=== PATIENT | male | born 1940 | race Caucasian/White ===

== ENCOUNTER 2021-10-07 10:05 | Emergency (ER) | payer OTHER, SELFPAY ==
[2021-10-07 10:15] VITALS: BP 160/70; PULSE 74; RESP 16; TEMP 36.3; O2SAT 98
--- NOTE | 2021-10-07 10:15 | ED.GENADULT ---
HPI - General Adult General Chief complaint: Upper Respiratory Infection Stated complaint: sre throat Time Seen by Provider: 10/07/21 10:17 Source: patient and RN notes reviewed Mode of arrival: ambulatory Limitations: no limitations History of Present Illness HPI narrative: 80-year-old male presenting for complaint of runny nose and occasional nonproductive cough for about 3 weeks. He denies associated sinus pressure/congestion, shortness of breath, nausea, vomiting, dizziness, fever or chills. He has not taken anything for symptoms, stating he does not like the effects of any medications. States he does not have a PCP. History of aneurysm, aortic valve replacement. Related Data Home Medications Medication Instructions Recorded Confirmed amlodipine 5 mg tablet 5 mg PO DAILY 08/31/19 10/07/21 lisinopril 40 mg tablet 40 mg PO DAILY 08/31/19 10/07/21 metoprolol tartrate 25 mg tablet 25 mg PO DAILY 08/31/19 10/07/21 simvastatin 10 mg tablet 10 mg PO DAILY 08/31/19 10/07/21 terazosin 5 mg capsule 5 mg PO DAILY 08/31/19 10/07/21 warfarin 4 mg tablet 4 mg PO DAILY 08/31/19 10/07/21 Allergies Allergy/AdvReac Type Severity Reaction Status Date / Time shellfish derived Allergy Severe N/V, Verified 10/07/21 10:10 DIAHRREJorge Review of Systems Review of Systems: CONSTITUTIONAL:denies malaise, chills, sweats, fever EYES: Denies visual changes, redness, or discharge ENT: Reports rhinorrhea, denies congestion, sinus pain, otalgia, sore throat CARDIOVASCULAR: Denies chest pain, palpitations, edema RESPIRATORY: Reports cough, post nasal drainage. Denies dyspnea GASTROINTESTINAL: Denies abdominal pain, nausea, vomiting, diarrhea SKIN: Denies rash or itching MUSCULOSKELETAL: denies myalgia NEUROLOGIC: Denies headache PMFSH Social History Social History Smoking status: Never smoker Exam Narrative: GENERAL: well-appearing, nontoxic HEAD: Normocephalic EYES: PERRLA, conjunctivae clear ENT: Mucous membranes moist. TM unable to visualize due to cerumen bilaterally; no tragal tenderness. Oropharynx erythematous without lesions or exudate, no drooling, no hoarseness, no trismus, uvula midline. NECK: Supple. No lymphadenopathy CHEST: Clear to auscultation, breath sounds equal. No wheezing, rhonchi, rales, or stridor. No respiratory distress, speaks in full sentences. HEART: Regular rate and rhythm. No murmur heard. SKIN: Warm, dry, no rash. NEURO: Alert and oriented x3. PSYCH: Normal mood and affect Course Course Emergency Course: Patient is aware of diagnosis, we discussed at length recommend otc meds for 'runny nose' symptoms; pt is adamant he needs abx. Advised taking otc meds and if no improvement/ worsening condition abx is prescribed. understands and agrees to treatment plan. Anticipatory guidance given. Patient agrees to follow-up as directed and is aware of reasons to seek care at the emergency department. Portions of this record may have been created with voice recognition software Level of Care: Express Care Visit Vital Signs Vital signs: Vital Signs Temperature 97.4 F L 10/07/21 10:15 Pulse Rate 74 10/07/21 10:15 Respiratory Rate 16 10/07/21 10:15 Blood Pressure 160/70 H 10/07/21 10:15 Pulse Oximetry 98 10/07/21 10:15 Temperature 97.4 F L 10/07/21 10:15 Pulse Rate 74 10/07/21 10:15 Respiratory Rate 16 10/07/21 10:15 Blood Pressure 160/70 H 10/07/21 10:15 Pulse Oximetry 98 10/07/21 10:15 reviewed Medical Decision Making Differential Diagnosis Differential Diagnosis: influenza, covid, sinusitis, OM, strep pharyngitis, URI Vital Signs Vital Signs: Vital Signs Temperature 97.4 F L 10/07/21 10:15 Pulse Rate 74 10/07/21 10:15 Respiratory Rate 16 10/07/21 10:15 Blood Pressure 160/70 H 10/07/21 10:15 Pulse Oximetry 98 10/07/21 10:15 Temperature 97.4 F L 10/07/21 10:15 Pulse Rate 74 10/07/21 10:15 Re
== END 2021-10-07 10:30 | disposition home or self-care (01) ==
PROVIDERS: Emergency Provider Nurse Practitioner Family
DX: J06.9 Acute upper respiratory infection, unspecified (principal); E78.00 Pure hypercholesterolemia, unspecified; I10 Essential (primary) hypertension; M19.90 Unspecified osteoarthritis, unspecified site
CPT/HCPCS: 99213; G0463

== ENCOUNTER 2022-12-25 09:50 | Emergency (ER) | payer OTHER, SELFPAY ==
--- NOTE | ~2022-12-25 | XR_ITS ---
XR chest 2V 12/25/2022 10:56 Indication: Shortness of breath and congestion Procedure: 2 view chest Comparison: Comparison to multiple prior studies sequentially, with oldest reviewed study dated 11/2017. Findings: Heart size normal. Status post median sternotomy for CABG. There is a prosthetic heart valv e. No there are chronic right basilar infiltrates, most likely atelectasis scarring. Elevated right d iaphragm. No acute pneumonia, edema, significant effusion or pneumothorax. Impression: 1: Chronic right basilar atelectasis/scarring. Reviewed, dictated and finalized at location A. Impression: 1: Chronic right basilar atelectasis/scarring.
[2022-12-25 10:03] VITALS: BP 142/72; PULSE 81; RESP 16; TEMP 37.1; O2SAT 95
--- NOTE | 2022-12-25 10:31 | ED.URI ---
HPI - URI/Sore Throat General Chief Complaint: Upper Respiratory Infection Stated Complaint: cough; clear drainage Time Seen by Provider: 12/25/22 10:31 Source: patient and RN notes reviewed Mode of arrival: ambulatory Limitations: no limitations History of Present Illness HPI Narrative: 82-year-old male presented for complaint of cough, runny nose for months since having covid. States last night the nonproductive cough was worse. Coughing increased when laying flat due to drainage. Denies shortness of breath, wheezing, nausea vomiting, fevers or chills. He has not taking anything for symptoms. MD elicited complaint: cough Related Data Home Medications Medication Instructions Recorded Confirmed amlodipine 5 mg tablet 5 mg PO DAILY 09/02/22 12/25/22 aspirin 81 mg tablet,delayed 81 mg PO DAILY 09/02/22 12/25/22 release (Adult Low Dose Aspirin) lisinopril 40 mg tablet 40 mg PO DAILY 09/02/22 12/25/22 simvastatin 10 mg tablet 10 mg PO .COMPLEX 09/02/22 12/25/22 terazosin 5 mg capsule 5 mg PO DAILY 09/02/22 12/25/22 warfarin 4 mg tablet 4 mg PO QMWF 09/02/22 12/25/22 Allergies Allergy/AdvReac Type Severity Reaction Status Date / Time shellfish derived Allergy Severe N/V, Verified 09/02/22 12:43 DIAHRREA Review of Systems Review of Systems: CONSTITUTIONAL: Denies malaise, chills, sweats, fever EYES: Denies visual changes, redness, or discharge ENT: Reports rhinorrhea, congestion, denies sinus pain, otalgia, sore throat CARDIOVASCULAR: Denies chest pain, palpitations, edema RESPIRATORY: Reports cough, post nasal drainage. Denies dyspnea GASTROINTESTINAL: Denies abdominal pain, nausea, vomiting, diarrhea SKIN: Denies rash or itching MUSCULOSKELETAL: Denies myalgia NEUROLOGIC: Denies headache PMFSH Past Medical History Medical History COVID-19 Hypertension Surgical History Surgical History Aortic valve replaced History of tonsillectomy Social History Social History Smoking status: Never smoker Alcohol intake: current Substance use: never Lack of Transportation: No Lack of Food: Never True Current Housing: I Have Housing Concerned About Future Housing: No Difficulty Paying Gas/Electric Bills: No Difficulty Paying for Meds: No Currently Unemployed: No Education: Master's Degree or Higher Difficulty w/ Childcare or Family Care: No Exam Narrative: GENERAL: well-appearing EYES: PERRLA, conjunctivae clear ENT: Mucous membranes moist. TM pearly escobar with dull light reflex bilaterally; no tragal tenderness. Oropharynx erythematous without lesions or exudate, no drooling, no hoarseness, no trismus, uvula midline. No tripod positioning, muffled voice, soft palate or pharyngeal wall bulging NECK: Supple. No lymphadenopathy CHEST: Clear to auscultation, breath sounds equal. No wheezing, rhonchi, rales, or stridor. No respiratory distress, speaks in full sentences. HEART: Regular rate and rhythm. Valve sound noted. No murmur heard. SKIN: Warm, dry, no rash. NEURO: Alert and oriented x3. PSYCH: Normal mood and affect Course Course Emergency Course: Patient is aware of diagnosis, understands and agrees to treatment plan. Anticipatory guidance given. Patient agrees to follow-up as directed and is aware of reasons to seek care at the emergency department. Portions of this record may have been created with voice recognition software Level of Care: Express Care Visit Vital Signs Vital signs: Vital Signs Temperature 98.7 F 12/25/22 10:03 Pulse Rate 81 12/25/22 10:03 Respiratory Rate 16 12/25/22 10:03 Blood Pressure 142/72 H 12/25/22 10:03 Pulse Oximetry 95 12/25/22 10:03 Oxygen Delivery Room Air 12/25/22 10:03 Temperature 98.7 F 12/25/22 10:03 Pulse Rate 81 12/25/22 10:
== END 2022-12-25 11:30 | disposition home or self-care (01) ==
PROVIDERS: Emergency Provider Nurse Practitioner Family; PCP Pediatrics Neonatal-Perinatal Medicine
DX: J06.9 Acute upper respiratory infection, unspecified (principal); I10 Essential (primary) hypertension; Z86.16 Personal history of COVID-19; Z95.2 Presence of prosthetic heart valve
CPT/HCPCS: 71046; 99213; G0463

== ENCOUNTER 2024-03-12 16:01 | Emergency (ER) | payer OTHER, SELFPAY ==
[2024-03-12 16:04] VITALS: O2SAT 97
--- NOTE | 2024-03-12 16:09 | ECG_ITS ---
Test Date: 2024-03-12 16:12:14 Measurements Intervals [place] Rate: 82 P: 161 ID: 162 QRS: 232 QRSD: 142 T: 118 QT: 406 QTc: 475 Interpretive Statements SINUS RHYTHM ATRIAL AND VENTRICULAR PREMATURE COMPLEXES ARM LEADS REVERSED RIGHT BUNDLE BRANCH BLOCK BASELINE ARTIFACT- I, II, III, AVR, AVL, AVF ABNORMAL ECG No previous ECG available for comparison Electronically Signed On 03-12-2024 16:39:03 CDT by Vniay Bermudez D.O.
--- NOTE | 2024-03-12 16:09 | ED.CHESTPAIN ---
HPI - Chest Pain General Chief Complaint: Chest Pain Stated Complaint: Chest Wall Pain Time Seen by Provider: 03/12/24 16:02 Source: patient Mode of arrival: ambulatory Limitations: no limitations History of Present Illness HPI narrative: 83-year-old male presents with concern for chest pain. Reports sudden onset of left chest pain today. Reports he took a nitroglycerin when he had the pain, just prior to arrival. He denies any shortness of breath, coughing. Denies recent illness. He denies history of AK, reports history of valve replacement. He denies nausea, vomiting, back pain, abdominal pain. Patient demanded upon arrival be put on oxygen. Patient was started on 2 L nasal cannula, however he was 97% on room air. MD complaint: chest pain Related Data Home Medications Medication Instructions Recorded Confirmed amlodipine 5 mg tablet 5 mg PO DAILY 09/02/22 02/28/24 aspirin 81 mg tablet,delayed 81 mg PO DAILY 09/02/22 02/28/24 release (Adult Low Dose Aspirin) lisinopril 40 mg tablet 40 mg PO DAILY 09/02/22 02/28/24 simvastatin 10 mg tablet 10 mg PO .COMPLEX 09/02/22 02/28/24 terazosin 5 mg capsule 5 mg PO DAILY 09/02/22 02/28/24 warfarin 4 mg tablet 4 mg PO QMWF 09/02/22 02/28/24 Allergies Allergy/AdvReac Type Severity Reaction Status Date / Time shellfish derived Allergy Severe N/V, Verified 02/28/24 12:57 DIAHRREA Review of Systems Review of Systems: CONSTITUTIONAL: Denies malaise, chills, sweats, or fever. ENT: Denies rhinorrhea, congestion, sinus pain, otalgia or sore throat. CARDIOVASCULAR: Reports left-sided chest pain RESPIRATORY: Denies cough or dyspnea. GASTROINTESTINAL: Denies abdominal pain, nausea, vomiting MUSCULOSKELETAL: Reports back pain NEUROLOGIC: Denies numbness, weakness All systems reviewed & are unremarkable except as noted in HPI and below PMFSH Past Medical History Medical History COVID-19 Hypertension Surgical History Surgical History Aortic valve replaced History of tonsillectomy Social History Social History Smoking status: Never smoker Alcohol intake: current Substance use: never Lack of Transportation: No Lack of Food: Never True Current Housing: I Have Housing Concerned About Future Housing: No Difficulty Paying Gas/Electric Bills: No Difficulty Paying for Meds: No Currently Unemployed: No Education: Master's Degree or Higher Difficulty w/ Childcare or Family Care: No Comments At time of signature, agree with nursing past medical, surgical, social and family history. There is no relevant family history pertinent to the presenting complaint Exam Narrative: GENERAL: Nontoxic-appearing, well-nourished, and in no acute distress. HEAD: Normocephalic, atraumatic. EYES: PERRLA, sclera clear ENT: Nares clear. Mucous membranes moist. NECK: Supple. CHEST: No respiratory distress. Clear to auscultation. No bony deformities, no asymmetry. Speaks in full sentences. HEART: Regular rate and rhythm. No murmur heard. Normal peripheral pulses. SKIN: Warm, dry, no visible rash. NEURO: Alert and oriented x3. PSYCH: Normal mood and affect Course Course Emergency Course: Patient is aware of, understands and agrees to be transferred to the ER via EMS. Portions of this record may have been created with voice recognition software Level of Care: Express Care Visit Vital Signs Vital signs: Reviewed. Transfer Transfered to: [facility] Transportation: ALS Transfer rationale: Chest pain, suspected AK Accepting physician: [facility] that they may have to bring the patient to the closest facility which is [place], I spoke to Dr. Clark at [facility] on the phone, faxed EKG to Dr. Clark. MDM - Chest Pain MDM Narrative Medical decision
[2024-03-12 16:14] VITALS: BP 145/107; PULSE 79; RESP 20; TEMP 36.9; O2SAT 97
[2024-03-12 16:15] VITALS: BP 151/57; PULSE 87; RESP 20; O2SAT 99
[2024-03-12] MEDS: ASPIRIN 81 MG CHEWABLE TABLET 324 MG PO (16:33)
== END 2024-03-12 16:15 | disposition short-term general hospital (02) ==
PROVIDERS: Emergency Provider Nurse Practitioner
DX: R07.9 Chest pain, unspecified (principal); I10 Essential (primary) hypertension; Z95.2 Presence of prosthetic heart valve; Z86.16 Personal history of COVID-19; Z79.82 Long term (current) use of aspirin; Z79.01 Long term (current) use of anticoagulants
CPT/HCPCS: 93005; 99215; A9270; G0463

== ENCOUNTER 2025-01-04 14:52 | Emergency (ER) | payer OTHER, SELFPAY ==
[2025-01-04 15:10] VITALS: BP 115/48; PULSE 98; RESP 16; TEMP 37.2; O2SAT 94
--- NOTE | 2025-01-04 15:31 | ED_ITS ---
HPI - Extremity Injury (Upper) General Chief Complaint: Extremity Injury, Upper Stated Complaint: Left Hand Laceration Time Seen by Provider: 01/04/25 15:31 Source: patient and RN notes reviewed Mode of arrival: ambulatory Limitations: no limitations History of Present Illness HPI narrative: 84-year-old male presents with concern for skin tear to his left hand. Reports 3 days ago he got a skin caught in the zipper on his pants. Reports a keeps opening back up and bleeding. He is on a blood thinner. MD complaint: injury to: left and hand Related Data Home Medications ?Medication ?Instructions ?Recorded ?Confirmed ?Last Taken ?Type amlodipine 5 mg tablet 5 mg PO DAILY 09/02/22 03/12/24 Unknown History aspirin 81 mg tablet,delayed 81 mg PO DAILY 09/02/22 03/12/24 Unknown History release (Adult Low Dose Aspirin) lisinopril 40 mg tablet 40 mg PO DAILY 09/02/22 03/12/24 Unknown History simvastatin 10 mg tablet 10 mg PO .COMPLEX 09/02/22 03/12/24 Unknown History terazosin 5 mg capsule 5 mg PO DAILY 09/02/22 03/12/24 Unknown History warfarin 4 mg tablet 4 mg PO QMWF 09/02/22 03/12/24 Unknown History Allergies Allergy/AdvReac Type Severity Reaction Status Date / Time shellfish derived Allergy Severe N/V, Verified 01/04/25 15:18 DIAHRREA Review of Systems Review of Systems: CONSTITUTIONAL: Denies malaise, chills, sweats, or fever. SKIN: Reports skin tear to the dorsal left hand MUSCULOSKELETAL: Denies muscle skeletal pain NEUROLOGIC: Denies numbness, weakness All systems reviewed & are unremarkable except as noted in HPI and below PMFSH Past Medical History Medical History COVID-19 Hypertension Surgical History Surgical History Aortic valve replaced History of tonsillectomy Social History Social History Smoking status: Never smoker Alcohol intake: current Substance use: never Lack of Transportation: No Lack of Food: Never True Current Housing: I Have Housing Concerned About Future Housing: No Difficulty Paying Gas/Electric Bills: No Difficulty Paying for Meds: No Currently Unemployed: No Education: Master's Degree or Higher Difficulty w/ Childcare or Family Care: No Comments At time of signature, agree with nursing past medical, surgical, social and family history. There is no relevant family history pertinent to the presenting complaint Exam Narrative: GENERAL: Well-appearing, well-nourished, and in no acute distress. HEAD: Normocephalic, atraumatic. EYES: PERRLA, conjunctivae clear NECK: Supple. CHEST: Speaks in full sentences. No respiratory distress. HEART: Regular rate and rhythm. Normal and equal peripheral pulses. EXTREMITIES: Left hand digits have grossly normal strength and sensation, normal range of motion. No edema or ecchymosis.Distal pulses palpable and equal bilaterally, skin warm, dry, pink. Capillary refill less than 3 seconds. SKIN: Warm, dry, no rash. V-shaped skin tear proximally 2 cm noted to the dorsal left hand, edges fairly well-approximated. No surrounding erythema, edema, induration or drainage. NEURO: Alert and oriented x3. PSYCH: Normal mood and affect Course Course Emergency Course: Patient is aware of diagnosis, understands and agrees to treatment plan. Anticipatory guidance given. Patient agrees to follow-up as directed and is aware of reasons to seek care at the emergency department. Portions of this record may have been created with voice recognition software Level of Care: Express Care Visit Vital Signs Vital signs: Vital Signs Temperature 99.0 F 01/04/25 15:10 Pulse Rate 98 01/04/25 15:10 Respiratory Rate 16 01/04/25 15:10 Blood Pressure 115/48 L 01/04/25 15:10 Pulse Oximetry 94 01/04/25 15:10 Oxygen Delivery Room Air 01/04/25 15:10 Temperature 99.0 F 01/04/25 15:10 Pulse Rate 98 01/04/25 15:10 Respiratory Rate 16 01/04/25 15:10 Blood Pressure 115/48 L 01/04/25 15:10 Pulse Oximetry 94 01/04/25 15:10 Oxygen Delivery Room Air 01/04/25 15:10 Reviewed. Procedures Laceration Laceration 1: Date: 01/04/25 Time: 15:35 Site: hand Side (If applicable): left Size (cm): 2 Description: flap Depth: simple, single layer Pre-repair: irrigated ====== Skin Level ====== Skin layer closed with: dermabond ====== Subcutaneous Layer ====== ====== Muscle Layer ====== ====== Tendon Layer ====== MDM - Extremity Injury (Upper) MDM Narrative Medical decision making narrative: I evaluated this patient in the express care. History is obtained from patient who is an independent historian and physical exam was performed.? Available medical records were reviewed. ? Exam findings show no acute concerns or changes; patient is non-toxic appearing and is in no distress. ? Differential diagnosis and treatment plan were discussed with the patient. Patient agrees with discussion and after shared medical decision making agrees with plan of care. All questions were answered to the patient's satisfaction. Patient is appropriate for outpatient treatment and follow-up. Critical Care Time Critical Care Time Critical Care Time: No Discharge Plan Discharge Clinical Impression: Skin tear Patient Disposition: Home Condition: Stable Instructions: Skin Tear (ED) Additional Instructions: Skin adhesive care: -adhesive works like a bandage; do not use antibiotic ointment as it can break down the adhesive -You can shower while the adhesive is on your skin, but do not take a bath or soak or scrub the area for 7-10 days. Dry your skin by patting it gently with a towel. -The adhesive will peel off on its own; usually by 5-10days. If after 10 days, you still have adhesive on you, you can use antibiotic ointment or petroleum jelly to get it off. After you heal, you should protect the scar from the sun. Use sunscreen on the area or wear clothes or a hat that covers the scar. Follow up with your PCP as needed If you have any worsening of symptoms, redness, swelling, fever, or drainage, or any other concerns please follow up with your PCP or go to the ED immediately. Patient Language: Bulgarian Prescriptions: No Action amlodipine 5 mg tablet 5 mg PO DAILY terazosin 5 mg capsule 5 mg PO DAILY aspirin [Adult Low Dose Aspirin] 81 mg tablet,delayed release (DR/EC) 81 mg PO DAILY lisinopril 40 mg tablet 40 mg PO DAILY simvastatin 10 mg tablet 10 mg PO .COMPLEX Rx Instructions: 10 mg orally three times a week; warfarin 4 mg tablet 4 mg PO QMWF Rx Instructions: Patient takes 4 mg tuesday, Tuesday, tuesday 6 mg the other days metformin 500 mg tablet 500 mg PO DAILY Qty: 30 3RF alendronate 35 mg tablet 35 mg PO WEEKLY Qty: 12 1RF Follow-up/Referrals: Brenna Vaughan APRN [Primary Care Provider] - Time of Disposition: 15:36
== END 2025-01-04 16:16 | disposition home or self-care (01) ==
PROVIDERS: Emergency Provider Nurse Practitioner; PCP Nurse Practitioner Family
DX: S61.412A Laceration without foreign body of left hand, initial encounter (principal); W23.0XXA Caught, crushed, jammed, or pinched between moving objects, initial encounter; I10 Essential (primary) hypertension; Z86.16 Personal history of COVID-19; Z79.82 Long term (current) use of aspirin; Z79.01 Long term (current) use of anticoagulants
CPT/HCPCS: 12001; 99212; G0463